=== PATIENT | male | born 1995 ===

== ENCOUNTER 2022-11-15 14:16 | Emergency (ER) | payer SELFPAY ==
[~2022-11-15] VITALS: Ht 1 cm; Wt 74.1 kg
[2022-11-15 14:38] VITALS: BP 165/90; TEMP 98.8
[2022-11-15 15:38] VITALS: PULSE 79
== END 2022-11-15 15:44 | disposition home or self-care (01) ==
LOC: COL.ER 14:16
DX: S61.213A Laceration without foreign body of left middle finger without damage to nail, initial encounter (principal); S61.215A Laceration without foreign body of left ring finger without damage to nail, initial encounter; F17.210 Nicotine dependence, cigarettes, uncomplicated; Z23 Encounter for immunization; W26.8XXA Contact with other sharp object(s), not elsewhere classified, initial encounter; Y92.59 Other trade areas as the place of occurrence of the external cause; Y99.0 Civilian activity done for income or pay